=== PATIENT | male | born 1945 | race Caucasian/White ===

== ENCOUNTER 2021-03-24 07:49 | Emergency (ER) | payer OTHER, MEDICARE ==
[~2021-03-24] VITALS: Ht 167.6 cm; Wt 68.0 kg
[~2021-03-24 07:49] MED LIST: EFFER-K 20 MEQ20 MEQ PO; FLEXERIL10 MG PO; LISINOPRIL-HCT1 EACH PO; LISINOPRIL20 MG PO; NORCO 5-325 TA1 EACH PO
[2021-03-24] MEDS ORDERED: LIPITOR20 MG PO (08:09)
[2021-03-24] MEDS ORDERED: PREDNISONE20 MG PO (09:15)
== END 2021-03-24 09:22 | disposition home or self-care (01) ==
LOC: ED 07:49
DX: M17.12 Unilateral primary osteoarthritis, left knee (principal); I10 Essential (primary) hypertension; Z79.899 Other long term (current) drug therapy
CPT/HCPCS: 20610; 73560; 99283-25; J7512

== ENCOUNTER 2021-05-16 07:22 | Emergency (ER) | payer OTHER, MEDICARE ==
[~2021-05-16] VITALS: Ht 167.6 cm; Wt 68.0 kg
[~2021-05-16 07:22] MED LIST changes: +LIPITOR20 MG PO; +PREDNISONE20 MG PO
[2021-05-16] MEDS ORDERED: POTASSIUM CHLO20 ME1 PO (11:28)
--- NOTE | 2021-05-19 18:51 | EKG ---
[facility] [address] [facility] [place], [place] [address] Signed Sinus bradycardia Otherwise normal ECG When compared with ECG of 01-SEP-2016 12:52, No significant change was found Confirmed by EMERITA LIMA MD ([id number]) on 05/19/2021 6:51:16 PM Electronically Signed By: EMERITA LIMA MD [id number]/[id number] PATIENT NAME: KEYLA ARMENTA Electrocardiogram DATE OF : 49 PHYSICIAN: EMERITA LIMA MD REPORT #: [id number] REPORT IS CONFIDENTIAL AND NOT TO BE RELEASED WITHOUT AUTHORIZATION
== END 2021-05-16 12:44 | disposition home or self-care (01) ==
LOC: ED 07:22
DX: U07.1 COVID-19 (principal); S01.111A Laceration without foreign body of right eyelid and periocular area, initial encounter; E87.6 Hypokalemia; R55 Syncope and collapse; N28.9 Disorder of kidney and ureter, unspecified; I10 Essential (primary) hypertension; Z79.899 Other long term (current) drug therapy; W19.XXXA Unspecified fall, initial encounter
CPT/HCPCS: 12013; 36415; 70450; 71045; 72125; 80053; 81001; 83735; 84484; 85025; 93005; 93010; 99285-25; C9803; J2405; J3480; J7030; J7060; U0003

== ENCOUNTER 2022-03-20 07:39 | Emergency (ER) | payer OTHER ==
[~2022-03-20] VITALS: Ht 167.6 cm; Wt 72.6 kg
[~2022-03-20 07:39] MED LIST changes: +POTASSIUM CHLO20 ME1 PO
--- NOTE | 2022-03-22 23:07 | EKG ---
[facility] [address] [place] [address] Signed Sinus bradycardia Voltage criteria for left ventricular hypertrophy ( R in aVL , Sokolow-Swartz , Anjel product ) Abnormal ECG When compared with ECG of 16-MAY-2021 07:36, No significant change was found Confirmed by Joselito Gtz MD () on 03/22/2022 11:07:31 PM Electronically Signed By: JOSELITO GTZ MD 03/22/22 2307 PATIENT NAME: KEYLA ARMENTA Electrocardiogram DATE OF : 49 PHYSICIAN: JOSELITO GTZ MD REPORT #: [id number] REPORT IS CONFIDENTIAL AND NOT TO BE RELEASED WITHOUT AUTHORIZATION
== END 2022-03-20 11:37 | disposition home or self-care (01) ==
LOC: ED 07:39
PROC: 0HQFXZZ Repair Right Hand Skin, External Approach (ICD-10-PCS; principal; 2022-03-20)
DX: R55 Syncope and collapse (principal); S61.011A Laceration without foreign body of right thumb without damage to nail, initial encounter; I10 Essential (primary) hypertension; Z79.899 Other long term (current) drug therapy; Z20.822 Contact with and (suspected) exposure to COVID-19; X58.XXXA Exposure to other specified factors, initial encounter
CPT/HCPCS: 12001; 36415; 73140; 80053; 83690; 85025; 87502; 93005; 93010; 99284-25; C9803; J2765; U0003

== ENCOUNTER 2023-01-25 19:02 | Emergency (ER) | payer OTHER, MEDICARE ==
[~2023-01-25] VITALS: Ht 167.6 cm; Wt 77.0 kg
[2023-01-25 20:56] LABS: BASOPHILS 0.9 % (0-2); HEMATOCRIT 36.7 % (35.0-50.0); HEMOGLOBIN 12.2 g/dL (12.0-18.0); LYMPHOCYTES 12.7 % (24-44); MCH 28.3 (27-36); MCHC 33.3 g/dl (30-36); MCV 85.1 fl (81-99); NEUTROPHILS 71.4 % (39-80); PLATELET COUNT 287 K/uL (140-440); RBC 4.31 M/ul (4.3-5.7); RDW 13.9 (10.5-15.0)
[2023-01-25 21:10] LABS: ALBUMIN 3.5 g/dL (3.4-5.0); ALBUMIN/GLOBULIN RATIO 0.8 (1.1-2.4); ANION GAP 14.2 (7-21); BILIRUBIN, TOTAL 0.6 ng/dL (0.2-1.0); BUN/CREATININE RATIO 7.1 (6.0-28.6); CALCIUM 8.7 mg/dL (8.5-10.1); CREATININE, SERUM 1.97 mg/dL (0.70-1.30); POTASSIUM 3.2 mmol/L (3.5-5.1); PROTEIN, TOTAL 7.9 g/dL (6.4-8.2)
[2023-01-25 22:11] LABS: INFLUENZA B NAA NEGATIVE (NEGATIVE); RESPIRATORY SYNCYTIAL VIR NAA NEGATIVE (NEGATIVE)
[2023-01-25 22:36] LABS: BILIRUBIN, URINE NEGATIVE (negative); BLOOD/HGB, URINE MODERATE (Negative); KETONE, URINE NEGATIVE (Negative); LEUK ESTERASE, URINE NEGATIVE (negative); NITRITE, URINE NEGATIVE (negative)
[2023-01-25 22:41] LABS: EPITHELIAL CELLS, URINE SQUAMOUS 1+ /lpf (0-1+)
[2023-01-25 22:42] LABS: BACTERIA, URINE RARE /hpf (negative); CASTS, URINE HYALINE 1+ \\lpf; CRYSTALS, URINE NONE SEEN (0-1+)
[2023-01-25 22:43] LABS: REFLEX CULTURE, URINE No (No)
[2023-01-25] MEDS ORDERED: NEURONTIN300 MG PO ×2 (23:35→23:36)
[2023-01-25] MEDS ORDERED: VALACYCLOVIR1000 MG PO ×2 (23:35→23:36)
[2023-01-25] MEDS ORDERED: CONSTULOSE10 GM/15 M PO ×2 (23:35→23:36)
[2023-01-25] MEDS ORDERED: ONDANSETRON ODT8 MG PO (23:36)
[2023-01-25 23:56] VITALS: BP 150/82
== END 2023-01-25 23:47 | disposition home or self-care (01) ==
LOC: ED 19:02
PROVIDERS: Family Medicine
DX: K59.00 Constipation, unspecified (principal); B02.9 Zoster without complications; Z20.822 Contact with and (suspected) exposure to COVID-19; Z79.899 Other long term (current) drug therapy
CPT/HCPCS: 36415; 74018; 74177; 80053; 81001; 83690; 85025; 87502; 96375; 99284-25; A9270; C9803; J0780; J2405; J7121; Q9967; U0002

== ENCOUNTER 2023-12-18 09:27 | Emergency (ER) | payer OTHER, MEDICARE ==
[~2023-12-18] VITALS: Ht 167.6 cm; Wt 77.1 kg
[~2023-12-18 09:27] MED LIST changes: +AMLODIPINE BES2.5 MG PO; +CHLORTHALIDONE25 MG PO; +CONSTULOSE10 GM/15 M PO; +COZAAR100 MG PO; +FERROUS SULFAT324 MG PO; +K-TAB ER20 MEQ PO; +NEURONTIN300 MG PO; +ONDANSETRON ODT8 MG PO; +VALACYCLOVIR1000 MG PO; +VITAMIN B-121000 MC3 PO; +VITAMIN D250 MCG PO
[2023-12-18] MEDS ORDERED: NORVASC10 MG PO (09:54)
[2023-12-18] MEDS ORDERED: ALDACTONE25 MG PO (09:55)
[2023-12-18] MEDS ORDERED: D3-200050 MCG PO (09:55)
[2023-12-18] MEDS ORDERED: COLACE100 MG PO (09:56)
[2023-12-18 10:32] LABS: BASOPHILS 1.4 % (0-2); HEMATOCRIT 32.6 % (35.0-50.0); HEMOGLOBIN 11.2 g/dL (12.0-18.0); LYMPHOCYTES 16.1 % (24-44); MCH 28.2 (27-36); MCHC 34.3 g/dl (30-36); MCV 82.2 fl (81-99); NEUTROPHILS 62.5 % (39-80); PLATELET COUNT 278 K/uL (140-440); RBC 3.97 M/ul (4.3-5.7); RDW 14.4 (10.5-15.0)
[2023-12-18 10:53] LABS: ALBUMIN 2.4 g/dL (3.4-5.0); ALBUMIN/GLOBULIN RATIO 0.69 (1.1-2.4); ANION GAP 12.2 (7-21); BILIRUBIN, TOTAL 0.5 ng/dL (0.2-1.0); BUN/CREATININE RATIO 5.97 (6.0-28.6); CALCIUM 8.6 mg/dL (8.5-10.1); CREATININE, SERUM 1.84 mg/dL (0.70-1.30); MAGNESIUM 1.8 mg/dL (1.8-2.4); POTASSIUM 3.2 mmol/L (3.5-5.1); PROTEIN, TOTAL 5.9 g/dL (6.4-8.2)
[2023-12-18] MEDS ORDERED: POTASSIUM CHLORIDE 10 MEQ TABCR PO ONE (11:30)
[2023-12-18] MEDS ORDERED: FUROSEMIDE20 MG PO (11:39)
[2023-12-18 12:02] VITALS: BP 167/89
== END 2023-12-18 12:00 | disposition home or self-care (01) ==
LOC: ED 09:27
PROVIDERS: Emergency Medicine
DX: R60.0 Localized edema (principal); I10 Essential (primary) hypertension; Z79.899 Other long term (current) drug therapy
CPT/HCPCS: 36415; 80053; 83735; 83880; 85025; 99283; A9270